=== PATIENT | female | born 1995 | race Caucasian/White ===

== ENCOUNTER 2017-11-19 22:38 | Emergency (ER) | payer OTHER ==
[2017-11-19 22:58] VITALS: BP 126/79; PULSE 79; TEMP 98.5; BMI 23.5
--- NOTE | 2017-11-20 00:53 | PDOC ---
History of Present Illness - General History Source: Patient, Old Records Exam Limitations: No Limitations - History of Present Illness Initial Comments: 11/20/17 03:05 Patient is a 22 year old female with a significant past medical history of Asthma, who presents to the ED with complaints of cold like symptoms that began earlier today. Patient reports experiencing chronic shortness of breath, as well as associated symptoms of sore throat, left ear pain and vomiting. She reports experiencing runny nose and productive cough with green sputum that began tuesday. Patient reports symptoms showed no signs of subsiding, prompting her to come into the ED for further evaluation. She reports taking 1 dose of dayquil this morning with minimum relief. Denies chest pain. Denies fevers, chills. Denies out of state travelling. Denies diarrhea, constipation, hematuria, dysuria. Denies any other symptoms. Allergies: Egg, Shellfish. 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 No smoking. No alcohol. No illicit drugs. Surgical history: None PMD: None <Abran Arambula - Last Filed: 11/20/17 03:04> <Lora Marks - Last Filed: 11/20/17 05:26> - General Chief Complaint: Respiratory Stated Complaint: ASTHMA Time Seen by Provider: 11/20/17 00:40 Past History <Abran Arambula - Last Filed: 11/20/17 03:04> - Past Medical History Asthma: Yes COPD: No - Suicide/Smoking/Psychosocial Hx Smoking Status: No Smoking History: Never smoked Have you smoked in the past 12 months: No Number of Cigarettes Smoked Daily: 0 Information on smoking cessation initiated: No Hx Alcohol Use: No Drug/Substance Use Hx: No Substance Use Type: None <Lora Marks - Last Filed: 11/20/17 05:26> - Past Medical History Allergies/Adverse Reactions: Allergies Allergy/AdvReac Type Severity Reaction Status Date / Time egg Allergy Severe Swelling Verified 11/19/17 22:56 shellfish derived Allergy Intermediate Swelling Verified 11/19/17 22:55 Home Medications: Ambulatory Orders Azithromycin [Zithromax -] 250 mg PO DAILY #4 tablet 11/20/17 Review of Systems - Review of Systems Able to Perform ROS?: Yes Comments:: 11/20/17 03:05 GENERAL/CONSTITUTIONAL: No fever or chills. No weakness. HEAD, EYES, EARS, NOSE AND THROAT: +Left ear pain. No change in vision. No ear discharge. No sore throat. CARDIOVASCULAR: +Shortness of breath No chest pain RESPIRATORY: +Cough No wheezing, or hemoptysis. GASTROINTESTINAL: +Nausea. +vomiting. No diarrhea or constipation. GENITOURINARY: No dysuria, frequency, or change in urination. MUSCULOSKELETAL: No joint or muscle swelling or pain. No neck or back pain. SKIN: No rash NEUROLOGIC: No headache, vertigo, loss of consciousness, or change in strength/ sensation. ENDOCRINE: No increased thirst. No abnormal weight change. HEMATOLOGIC/LYMPHATIC: No anemia, easy bleeding, or history of blood clots. ALLERGIC/IMMUNOLOGIC: No hives or skin allergy. <Abran Arambula - Last Filed: 11/20/17 03:04> *Physical Exam - Vital Signs Last Vital Signs Temp Pulse Resp BP Pulse Ox 98.5 F 79 18 126/79 99 11/19/17 22:56 11/19/17 22:56 11/19/17 22:56 11/19/17 22:56 11/19/17 22:56 - Physical Exam Comments: 11/20/17 03:05 GENERAL: Awake, alert, and fully oriented, in no acute distress HEAD: No signs of trauma EYES: PERRLA, EOMI, sclera anicteric, conjunctiva clear ENT: Auricles normal inspection, hearing grossly normal, nares patent, oropharynx clear without exudates. Moist mucosa NECK: Normal ROM, supple, no lymphadenopathy, JVD, or masses LUNGS: +Coarse left sided breath sounds. No wheezes, and no crackles HEART: Regular rate and rhythm, normal S1 and S2, no murmurs, rubs or gallops ABDOMEN: Soft, nontender, normoactive bowel sounds. No guarding, no rebound. No masses EXTREMITIES: Normal range of motion, no edema. No clubbing or cyanosis. No cords, erythema, or tenderness NEUROLOGICAL: Cranial nerves II through XII grossly intact. Normal speech, normal gait SKIN: Warm, Dry, normal turgor, no rashes or lesions noted. <Abran Arambula - Last Filed: 11/20/17 03:04> - Vital Signs Last Vital Signs Temp Pulse Resp BP Pulse Ox 98.5 F 79 18 126/79 99 11/19/17 22:56 11/19/17 22:56 11/19/17 22:56 11/19/17 22:56 11/19/17 22:56 <Lora Marks - Last Filed: 11/20/17 05:26> ED Treatment Course - ADDITIONAL ORDERS Additional order review: Laboratory Results 11/20/17 00:40 Urine HCG, Qual Negative - Medications Given in the ED: ED Medications Discontinued Medications Generic Name Dose Route Start Last Admin Trade Name Allyn PRN Reason Stop Dose Admin Albuterol/Ipratropium 1 amp 11/20/17 01:04 11/20/17 01:24 Duoneb - NEB 11/20/17 01:05 1 amp ONCE ONE Administration Azithromycin 500 mg 11/20/17 00:55 11/20/17 01:24 Zithromax - PO 11/20/17 00:56 500 mg ONCE ONE Administration <Abran Arambula - Last Filed: 11/20/17 03:04> - ADDITIONAL ORDERS Additional order review: Laboratory Results 11/20/17 00:40 Urine HCG, Qual Negative <Lora Marks - Last Filed: 11/20/17 05:26> Medical Decision Making - Medical Decision Making 11/20/17 05:25 Pt comes with cough and congestion. 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 No other complaints. Home with zpak and antipyretics. <Lora Marks - Last Filed: 11/20/17 05:26> *DC/Admit/Observation/Transfer - Attestations Scribe Attestion: 11/20/17 03:05 Documentation prepared by Abran Arambula, acting as medical administrative technician for Lora Marks MD/DO. <Abran Arambula - Last Filed: 11/20/17 03:04> - Discharge Dispostion Admit: No <Lora Marks - Last Filed: 11/20/17 05:26> Diagnosis at time of Disposition: Atypical pneumonia, Congestion of nasal sinus - Discharge Dispostion Disposition: HOME Condition at time of disposition: Stable - Prescriptions Prescriptions: Azithromycin [Zithromax -] 250 mg PO DAILY #4 tablet - Patient Instructions Printed Discharge Instructions: DI for Pneumonia -- Adult, DI for Acute Bronchitis - Post Discharge Activity Forms/Work/School Notes: Back to Work
[2017-11-20] MEDS ORDERED: AZITHROMYCIN 250 MG TABLET PO ONE (00:55)
[2017-11-20] MEDS ORDERED: ALBUTEROL SO4 2.5/IPRATROPIUM 0.5 INH SOL 3 ML VIAL.NEB. NEB ONE ×2 (01:04→01:18)
[2017-11-20] MEDS ORDERED: AZITHROMYCIN 500 MG TABLET ONE (01:18)
== END 2017-11-20 02:51 | disposition home or self-care (01) ==
LOC: JER 22:38
PROC: 3E0F7GC Introduction of Other Therapeutic Substance into Respiratory Tract, Via Natural or Artificial Opening (ICD-10-PCS; principal; 2017-11-19)
DX: J18.9 Pneumonia, unspecified organism (principal)
CPT/HCPCS: 84703; 94640; 99282-25; J7620